=== PATIENT | male | born 1950 | race Caucasian/White ===

== ENCOUNTER → 2020-11-18 11:20 | Outpatient (CLI) | payer MEDICARE, OTHER, SELFPAY ==
--- NOTE | 2020-11-18 11:22 | DI.RAD.S_ITS ---
PROCEDURE: XR HAND LT MIN 3V INDICATIONS: blunt trauma,2nd digit and medial hand swelling/reduced ROM TECHNIQUE: 3 views of the hand(s) acquired. COMPARISON: None. FINDINGS: Bones: No dislocations. Carpal bones are normally aligned. No suspicious bony lesions. There is a diagonal intra-articular fracture involving the base of the 2nd proximal phalanx, mildly impacted and angulated. The angulation is best seen on the lateral view.. Soft tissues: No suspicious soft tissue calcifications. IMPRESSION: Acute intra-articular mildly comminuted mildly angulated fracture at the base of the 2nd proximal phalanx. Dictated by: Jeromy Menezes M.D. on 11/18/2020 at 11:40 Approved by: Jeromy Menezes M.D. on 11/18/2020 at 11:45
--- NOTE | 2020-11-18 14:38 | DI.RAD.S_ITS ---
PROCEDURE: XR HAND LT MIN 3V INDICATIONS: Post reduction TECHNIQUE: 3 views of the hand(s) acquired. COMPARISON: [facility], CR, XR HAND LT MIN 3V, 11/18/2020, 11:27. FINDINGS: Bones: Comminuted, intra-articular fracture of the base of 2nd proximal phalange remains slightly displaced and angulated. Carpal bones are normally aligned. No suspicious bony lesions. Soft tissues: No suspicious soft tissue calcifications. IMPRESSION: 2nd proximal phalange fracture slightly displaced and angulated following closed reduction. Dictated by: Clementina Quiles MD, PhD on 11/18/2020 at 14:53 Approved by: Clementina Quiles MD, PhD on 11/18/2020 at 14:54
== END ==
PROVIDERS: PCP Nurse Practitioner Family; Referring Provider Student in an Organized Health Care Education/Training Program; Visit Provider Student in an Organized Health Care Education/Training Program
DX: S62.611A Displaced fracture of proximal phalanx of left index finger, initial encounter for closed fracture (principal); M79.642 Pain in left hand; X58.XXXA Exposure to other specified factors, initial encounter
CPT/HCPCS: 73130

== ENCOUNTER → 2021-01-27 08:38 | Outpatient (CLI) | payer MEDICARE, OTHER, SELFPAY ==
--- NOTE | 2021-01-27 08:44 | DI.RAD.S_ITS ---
PROCEDURE: XR HIP W PEL IF DONE LT 2V INDICATIONS: LT LEG/HIP PAIN TECHNIQUE: AP pelvis with lateral view(s) of the left hip(s). COMPARISON: None. FINDINGS: Bones: No fractures or dislocations. Pelvic ring appears intact. No suspicious bony lesions. Soft tissues: The visualized bowel gas pattern is normal. No suspicious soft tissue calcifications. IMPRESSION: No trauma found. There is mild symmetric hip joint osteoarthritis. Dictated by: Jeromy Menezes M.D. on 01/27/2021 at 10:16 Approved by: Jeromy Menezes M.D. on 01/27/2021 at 10:16
== END ==
PROVIDERS: PCP Family Medicine; Referring Provider Family Medicine; Visit Provider Family Medicine
DX: M79.605 Pain in left leg (principal)
CPT/HCPCS: 73502

== ENCOUNTER → 2021-03-11 14:18 | Outpatient (CLI) | payer MEDICARE, OTHER, SELFPAY ==
[2021-03-11 14:59] LABS: COVID19 -Nasal RAPID Negative (Negative)
== END ==
PROVIDERS: PCP Family Medicine; Visit Provider Specialist
DX: Z20.822 Contact with and (suspected) exposure to COVID-19 (principal); R68.81 Early satiety; R19.7 Diarrhea, unspecified
CPT/HCPCS: 87635; 99214; C9803

== ENCOUNTER 2021-03-12 07:24 | Day surgery (SDC) | payer MEDICARE, OTHER, SELFPAY ==
--- NOTE | 2021-03-12 | PATH_ITS ---
[facility] Accession Number: [id number] . 01 Material submitted: . PART A: gastrointestinal site - GASTRIC ULCER BIOPSY PART B: gastrointestinal site - SUBMUCOSAL LESION BIOPSY; ANTRUM PART C: colon - SMALL WHITE PLAQUES IN SIGMOID COLON . 01 Clinical history: . DX COLONOSCOPY/EGD . 02 Diagnosis: A. Stomach, Ulcer, Biopsy: Body-type mucosa with no significant diagnostic abnormality. Negative for Helicobacter by immunohistochemistry. Negative for intestinal metaplasia. Negative for dysplasia and malignancy. . B. Antrum, Submucosal Lesion, Biopsy: Antral mucosa with mild chronic gastritis. Please see comment. Negative for Helicobacter by immunohistochemistry. Negative for intestinal metaplasia. Negative for dysplasia and malignancy. . C. Small White Plaques in Sigmoid Colon, Biopsies: Patchy mildly active colitis. Please see comment. Negative for granulomas, dysplasia and malignancy. [facility] 03/18/2021 1325 Local . 02 Comment: B. The endoscopic impression of a submucosal lesion is noted. Additional levels were examined. Only a small amount of submucosa is present for evaluation. There are no histologic findings in the tissue submitted to explain the presence of a submucosal lesion. Endoscopic correlation recommended. . C. The sigmoid colon shows patchy mild neutrophilic cryptitis, mostly superficial. There is no significant distortion of the crypt architecture, including no branched crypts or increased lymphocytes and plasma cells in the lamina propria. No obvious viral cytopathic effects or parasitic organisms are identified. The differential diagnosis includes infection, medication-related mucosal injury, diverticular diseaase-associated colitis and idiopathic inflammatory bowel disease. . 02 Electronically signed: . Denice Lobato MD, Pathologist NPI- [id number] . 01 Gross description: . Part A: GASTRIC ULCER BIOPSY: Received in formalin are 2 fragment(s) of zapata, soft tissue measuring 0.5 x 0.3 x 0.2 cm to 0.3 x 0.2 x 0.2 cm submitted entirely in 1 cassette(s) Part B: SUBMUCOSAL LESION BIOPSY; ANTRUM: Received in formalin are 2 fragment(s) of zapata, soft tissue measuring 0.3 x 0.2 x 0.1 cm to 0.2 x 0.2 x 0.1 cm submitted entirely in 1 cassette(s) Part C: SMALL WHITE PLAQUES IN SIGMOID COLON: Received in formalin are multiple fragment(s) of zapata, soft tissue measuring 1.7 x 0.3 x 0.2 cm in aggregate submitted entirely in 1 cassette(s) /KEN 03/13/2021 0247 Local . 02 Microscopic: . A. An immunohistochemical stain was performed to evaluate for Helicobacter organisms and is negative. The control stain showed appropriate reactivity. . B. Additional levels were examined. An immunohistochemical stain was performed to evaluate for Helicobacter organisms and is negative. The control stain showed appropriate reactivity. . . * This test was developed and its performance characteristics determined by [facility]. It has not been cleared or approved by the U.S. Food and Drug Administration. The FDA has determined that such clearance or approval is not necessary. This test is used for clinical purposes. It should not be regarded as investigational or for research. . 02 Pathologist provided ICD-10: R68.81, R19.4 . 02 CPT . 696590, 976364, 411928, M26326 Performed at: 01 [facility] [address] [facility], [place], [place] [id number] MD Dmitry Dunn MD Phone: [phone] Performed at: 02 [facility] [address] [place] [id number] MD Denice Lobato MD Phone: [phone]
[2021-03-12 08:00] VITALS: BP 129/76; PULSE 68; RESP 15; TEMP 36.3; O2SAT 99; BMI 31.1
[2021-03-12] MEDS: LACTATED RINGERS 1,000 ML 200 ML IV (08:09)
--- NOTE | 2021-03-12 08:48 | PM.PREOP ---
Pre-operative Note COVID-19 COVID-19 status: Negative Result date/Date tested (Pos, Neg/Pending): 03/11/21 Interval Note History & Physical reviewed/Exam performed by Physician: Yes Changes to H&P: No ASA Class (for procedural sedation): I
[2021-03-12] MEDS: MIDAZOLAM 5 MG/5 ML VIAL IV (09:11)
[2021-03-12] MEDS: fentaNYL 250 MCG/5 ML INJ IV (09:11)
[2021-03-12] MEDS: LIDOCAINE 4% SOLN 50 ML 20 ML TOP (09:12)
[2021-03-12 09:58] VITALS: BP 154/76; PULSE 61; RESP 10; TEMP 37.1; O2SAT 95
[2021-03-12 10:03] VITALS: BP 145/77; PULSE 63; RESP 12; O2SAT 94
--- NOTE | 2021-03-12 10:05 | P.OP.ENDO_ITS ---
Operative Date/Time/Diagnoses Date of procedure: 03/12/21 Time of procedure: 10:05 Pre-op diagnosis: Early satiety. Chronic loose stools/diarrhea. Post-op diagnosis: same ( Gastric ulcers.) Procedure & Clinicians Study performed: EGD with cold biopsy. Colonoscopy with cold biopsy. Same procedure as scheduled: Yes Indications: Determine cause of patient's symptoms. Surgeon: Rd Leung Procedure Notes SCOAP/Timeout: performed Procedure in detail: patient was placed in left lateral decubitus position after gargling with lidocaine gel. He was sedated using fentanyl and Versed which was ordered by the surgeon. Bite block was inserted the scope was advanced through it into the esophagus. Esophagus was somewhat tortuous but otherwise normal. GE junction noted at 41 cm from the incisors. The stomach i nsufflated well. There were multiple small ulcers with the race center and a small clot on them. I counted 3. These were located in both the antrum and the proximal body. The pyloric channel was patent. The duodenum was normal to the 4th part. The scope was brought back into the stomach and retroflexed. There was no evidence of a hiatal hernia. Biopsies were taken of the ulcers and submitted. Scope was removed and the patient tolerated the procedure well. He was repositioned. The patient underwent additional IV sedation directed by the surgeon consisting of fentanyl and Versed. Digital exam was remarkable for what is probably enlarged prostate. I can only feel the distal portion of it.. The scope was inserted and advanced through the rectum into the sigmoid, descending, transverse, and ascending colon. The patient had It is very small white flat plaques in his sigmoid colon. The edges of them were slightly reddened. They were scattered and not large in number, But frequent enough to be noticed as unusual. In order to reach the cecum a stiffener was inserted pressure was applied the patient was reposition.. The cecum was reached identified by the ileocecal valve and the appendiceal opening. I was unable to cannulate the ileocecal valve. The valve itself looked normal however. The scope was gradually brought out. No Polyps were found. I took biopsies of the white plaques I saw going in. These appeared to be confined to the sigmoid colon. Both the rectum and more proximal colon were spared.The scope ultimately was retroflexed in the rectum. The appearance was Unremarkable. The scope was removed and the patient tolerated the procedure well. prep was very good. Liquid stool in the colon was submitted for culture, ova and parasites, and GI panel. Scope withdrawal time: 9 minutes( 11 total) Sedation minutes: 47 Findings: gastric ulcer Specimen(s): other ( ulcer biopsies. White plaque biopsies in the colon.) Complications: none Post-procedure Recommendations: Start medication(s) ( Proton pump inhibitor) Follow up: months ( 1) Disposition: PACU
[2021-03-12 10:08] VITALS: BP 149/72; PULSE 62; PULSE 63; RESP 12; RESP 16; O2SAT 94; O2SAT 95
[2021-03-12 10:22] VITALS: BP 136/68; PULSE 57; RESP 16; TEMP 36.7; O2SAT 92
[2021-03-12 10:52] VITALS: BP 128/74; PULSE 60; RESP 16; TEMP 36.6; O2SAT 95
--- NOTE | 2021-03-12 11:15 | SUR.PHASEII ---
1110 Instructions reviewed with in the waiting room and with patient prior to discharge. All questions answered
[2021-03-12 12:51] LABS: Adenovirus F 40/41 Not Detected (Not Detect); Astrovirus Not Detected (Not Detect); Campylobacter Not Detected (Not Detect); Clostridium difficile toxin AB Not Detected (Not Detect); Cryptosporidium Not Detected (Not Detect); Cyclospora cayetanensis Not Detected (Not Detect); Entamoeba histolytica Not Detected (Not Detect); Enteroaggregative E.coli Not Detected (Not Detect); Enteropathogenic E.coli Not Detected (Not Detect); Enterotoxigenic E.coli It/st Not Detected (Not Detect); Giardia lamblia Not Detected (Not Detect); Norovirus GI/GII Not Detected (Not Detect); Plesiomonsa shigelloides Not Detected (Not Detect); Rotavirus A Not Detected (Not Detect); Salmonella Not Detected (Not Detect); Sapovirus Not Detected (Not Detect); Shiga-like toxin-prod E.coli Not Detected (Not Detect); Shigella/Enteroinvasive E.coli Not Detected (Not Detect); Vibrio Not Detected (Not Detect); Vibrio cholerae Not Detected (Not Detect); Yersinia enterocolitica Not Detected (Not Detect)
== END 2021-03-12 11:05 | disposition home or self-care (01) ==
PROVIDERS: PCP Family Medicine; Referring Provider Specialist; Visit Provider Specialist
PROC: 0DJ08ZZ Inspection of Upper Intestinal Tract, Via Natural or Artificial Opening Endoscopic (ICD-10-PCS; CPT 43235; 2021-03-12 08:30)
PROC: 0DJD8ZZ Inspection of Lower Intestinal Tract, Via Natural or Artificial Opening Endoscopic (ICD-10-PCS; CPT 45378; 2021-03-12 08:30)
DX: K52.9 Noninfective gastroenteritis and colitis, unspecified (principal); R19.4 Change in bowel habit; R68.81 Early satiety; K25.9 Gastric ulcer, unspecified as acute or chronic, without hemorrhage or perforation; G47.33 Obstructive sleep apnea (adult) (pediatric); K29.50 Unspecified chronic gastritis without bleeding
CPT/HCPCS: 45380; 43239; 87177; 87507; 99152; 99153; J2250; J3010

== ENCOUNTER → 2021-07-29 09:35 | Outpatient (CLI) | payer MEDICARE, OTHER, SELFPAY ==
[2021-07-29 10:37] LABS: COVID19 -Nasal RAPID Negative (Negative)
== END ==
PROVIDERS: PCP Family Medicine; Visit Provider Specialist
DX: Z01.812 Encounter for preprocedural laboratory examination (principal); Z20.822 Contact with and (suspected) exposure to COVID-19
CPT/HCPCS: 87635; C9803

== ENCOUNTER 2021-07-30 06:39 | Day surgery (SDC) | payer MEDICARE, OTHER, SELFPAY ==
[2021-07-30] VITALS (9 sets, daily range): BP systolic 109–140; BP diastolic 50–75; PULSE 61–78; RESP 14–16; TEMP 36.4–36.8; O2SAT 93–97
--- NOTE | 2021-07-30 | PATH_ITS ---
[facility] Accession Number: [id number] . 01 Material submitted: . stomach - SUBMUCOSAL MASS IN ANTRUM . 02 Diagnosis: Stomach, Antrum, Submucosal Mass, Biopsies: Antral mucosa with mild chronic gastritis and focal neutrophilic activity. Please see comment. Negative for Helicobacter by immunohistochemistry. Negative for intestinal metaplasia. Negative for dysplasia and malignancy. . [facility] 08/03/2021 1832 Local . 02 Comment: The endoscopic impression of a submucosal mass is noted, however, there is no microscopic findings to explain the presence of a submucosal mass in the sections examined. Radiologic and endoscopic correlation are recommended, as well as close clinical follow-up, if clinically indicated. . 02 Electronically signed: . Denice Lobato MD, Pathologist NPI- [id number] . 01 Gross description: . SUBMUCOSAL MASS IN ANTRUM: Received in formalin are 5 fragment(s) of zapata, soft tissue measuring 0.4 x 0.3 x 0.3 cm to 0.2 x 0.2 x 0.2 cm submitted entirely in 1 cassette(s) /QBJ 07/31/2021 0745 Local . 02 Microscopic: . An immunohistochemical stain was performed to evaluate for Helicobacter organisms and is negative. The control stain showed appropriate reactivity. . * This test was developed and its performance characteristics determined by [facility]. It has not been cleared or approved by the U.S. Food and Drug Administration. The FDA has determined that such clearance or approval is not necessary. This test is used for clinical purposes. It should not be regarded as investigational or for research. . 02 Pathologist provided ICD-10: K25.3 . 02 CPT . 247769, [id number] Performed at: 01 [facility] [address] [id number] MD Dmitry Dunn MD Phone: [phone] Performed at: 02 [facility] [address] [place] [id number] MD Denice Lobato MD Phone: [phone]
[2021-07-30] MEDS: LACTATED RINGERS 1,000 ML 42 ML IV (07:08)
--- NOTE | 2021-07-30 08:00 | PM.HP.1 ---
History of Present Illness History of Present Illness Chief complaint: EGD Narrative: The patient is a gentleman with peptic ulcer disease. He is here to confirm healing of ulcers. 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) Tobacco & Substance use: Smoking Status Former smoker alcohol intake current alcohol intake frequency holiday/special occasion Substance Use Type does not use Meds Home Medications and Allergies Home Medications Medication Instructions Recorded Confirmed Type pramipexole 0.75 mg tablet 0.75 mg PO BEDTIME #90 tab 11/17/20 05/11/21 Rx omeprazole 20 mg capsule,delayed 20 mg PO BID #60 cap 03/12/21 07/30/21 Rx release [facility] AirCurve 10 BIPAP #1 ea 05/11/21 History Allergies Allergy/AdvReac Type Severity Reaction Status Date / Time Penicillins Allergy Verified 07/30/21 06:47 Review of Systems Review of Systems Narrative: No cardiopulmonary GI or symptoms. Exam Vital Signs (past 8 hours): - 07/30/21 06:51 Temperature 97.6 F Pulse Rate 73 Respiratory Rate 16 Blood Pressure 140/75 Pulse Oximetry 97 Oxygen Delivery Method Room Air Narrative Exam Narrative: Pleasant cooperative patient no apparent distress. Lungs are clear to auscultation. No rales or rhonchi. Heart regular rate and rhythm no murmur gallop. Abdomen is soft nontender without mass. No obvious hernias. Patient is alert and oriented x3. Assessment & Plan Assessment and plan (1) Gastric ulcer: Qualifiers: Gastric ulcer chronicity: acute Gastric ulcer complication status: without hemorrhage or perforation Qualified Code(s): K25.3 - Acute gastric ulcer without hemorrhage or perforation Status: Acute Assessment & Plan narrative: EGD. I discussed the procedure including risks of bleeding perforation. He appears to understand wishes to proceed Time Spent With Patient Critical Care time: I spent a total of [] minutes of critical care time on this patient's care today; this time is exclusive of procedural time.
--- NOTE | 2021-07-30 08:02 | PM.PREOP ---
Pre-operative Note COVID-19 COVID-19 status: Negative Result date/Date tested (Pos, Neg/Pending): 07/29/21 Interval Note History & Physical reviewed/Exam performed by Physician: Yes Changes to H&P: No ASA Class (for procedural sedation): I
[2021-07-30] MEDS: LIDOCAINE 4% SOLN 50 ML 20 ML TOP (08:26)
--- NOTE | 2021-07-30 08:27 | PM.OP.EGD ---
Operative Date/Time/Diagnoses Date of procedure: 07/30/21 Time of procedure: 08:27 Pre-op diagnosis: History of gastric ulcer Post-op diagnosis: same (Ulcer is healed. Small 1-1/2 to 2 cm submucosal mass in the antrum.) Procedure & Clinicians Study performed: EGD with cold biopsy Same procedure as scheduled: Yes Indications: Determine if ulcer is healed in an asymptomatic patient Surgeon: Rd Leung Procedure Notes SCOAP/Timeout: Performed Procedure in detail: The patient had topical anesthetic applied to oropharynx. She was placed in the left lateral decubitus position and underwent IV sedation directed by the surgeon consisting of fentanyl and Versed. A bite block was inserted and the scope was advanced through it into the esophagus. The esophagus was unremarkable. GE junction was noted at 42 cm from the incisors The stomach insufflated well. There were no lesions seen in the body or at the incisura. In the proximal antrum there was a small submucosal mass noted. The pyloric channel was narrowed but patent. The duodenum was unremarkable to the 4th part. Scope was brought back into the stomach and retroflexed. The proximal stomach normal in appearance. There is no evidence of a hiatal hernia. The scope was straightened and biopsies were taken in attempt to get deep biopsies of this submucosal mass. The scope was then Brought out through the esophagus again. No lesions were seen. The scope was removed and the patient tolerated the procedure well. Sedation minutes: 11 Findings: other findings (Submucosal mass) Specimen(s): other (Biopsies of submucosal mass) Post-procedure Plan for aftercare: Can stop omeprazole. I will let you know the biopsy results. Follow up: as needed Disposition: PACU
[2021-07-30] MEDS: fentaNYL 250 MCG/5 ML INJ IV (08:28)
[2021-07-30] MEDS: MIDAZOLAM 5 MG/5 ML VIAL IV (08:28)
== END 2021-07-30 09:31 | disposition home or self-care (01) ==
PROVIDERS: PCP Family Medicine; Referring Provider Specialist; Visit Provider Specialist
PROC: 0DJ08ZZ Inspection of Upper Intestinal Tract, Via Natural or Artificial Opening Endoscopic (ICD-10-PCS; CPT 43235; principal; 2021-07-30 07:45)
DX: Z09 Encounter for follow-up examination after completed treatment for conditions other than malignant neoplasm (principal); Z87.11 Personal history of peptic ulcer disease; E66.9 Obesity, unspecified; G47.33 Obstructive sleep apnea (adult) (pediatric); K29.50 Unspecified chronic gastritis without bleeding
CPT/HCPCS: 43239; 99152; J2250; J3010

== ENCOUNTER → 2021-09-07 13:29 | Outpatient (CLI) | payer MEDICARE, OTHER, SELFPAY ==
--- NOTE | 2021-09-07 | DI.US.S_ITS ---
PROCEDURE: US ABD AORTA ANEURYSM SCREEN INDICATIONS: SCREENING TECHNIQUE: Real time scanning was performed of the aorta and iliac arteries, with image documentation. COMPARISON: [facility], [place], ABDOMEN COMPLETE, 09/06/2014, 8:53. FINDINGS: Aorta: Proximal aortic diameter measures 2.5 cm. Mid-aorta measures 2.2 cm. Distal aortic diameter is 1.9 cm. Iliac arteries: Right common iliac artery measures 1 cm. Left common iliac artery measures 1.4 cm. IMPRESSION: Negative for aneurysm. Dictated by: West Albright M.D. on 09/07/2021 at 13:50 Approved by: West Albright M.D. on 09/07/2021 at 13:51
== END ==
PROVIDERS: PCP Family Medicine; Referring Provider Family Medicine; Visit Provider Family Medicine
DX: Z13.6 Encounter for screening for cardiovascular disorders (principal)
CPT/HCPCS: 76706

== ENCOUNTER 2021-10-19 12:57 | Emergency (ER) | payer MEDICARE, OTHER, SELFPAY ==
[2021-10-19 12:59] VITALS: BP 166/70; PULSE 74; RESP 15; TEMP 36.4; O2SAT 97; BMI 32.5
--- NOTE | 2021-10-19 13:03 | DI.RAD.S_ITS ---
PROCEDURE: XR FINGER RT MIN 2V INDICATIONS: cut finger with table saw TECHNIQUE: AP hand, 2 views of the right 2nd finger(s) acquired. COMPARISON: None. FINDINGS: Bones: No fractures or dislocations. No suspicious bony lesions. Soft tissues: No suspicious soft tissue calcifications. IMPRESSION: No fracture or foreign body identified. Dictated by: Papi Anton M.D. on 10/19/2021 at 14:04 Approved by: Papi Anton M.D. on 10/19/2021 at 14:05
[2021-10-19] MEDS: BACITRACIN OINT 0.9 GM PCKT 1 APPLIC TOP (15:33)
[2021-10-19] MEDS: LIDO 1%/SOD BICARB 8.4% (10ML) 10 ML SYRINGE INJ (15:33)
[2021-10-19 16:34] VITALS: BP 142/78; PULSE 65; RESP 18; O2SAT 100
--- NOTE | 2021-10-19 17:19 | ED_ITS ---
HPI - Wound/Laceration <Glenn Ordaz PA-C - Last Filed: 10/19/21 17:51> General Chief Complaint: Wound/Laceration Stated Complaint: Lac to right index finger, knicked with table saw Time Seen by Provider: 10/19/21 14:47 Source: patient Mode of arrival: Ambulatory History of Present Illness HPI narrative: 71-year-old male with past medical history obstructive sleep apnea presents to the ED status post a finger laceration sustained just prior to arrival. Patient is right-hand dominant. Patient's tetanus status is up-to-date. Patient accidentally injured the tip of his right index finger while using a table so. Patient denies numbness, tingling, weakness. Related Data Home Medications Medication Instructions Recorded Confirmed ResMed AirCurve 10 BIPAP #1 ea 05/11/21 08/14/21 Previous Rx's Medication Instructions Recorded pramipexole 0.75 mg tablet 0.75 mg PO BEDTIME #90 tab 11/17/20 Allergies Allergy/AdvReac Type Severity Reaction Status Date / Time Penicillins Allergy Verified 10/19/21 12:59 Review of Systems <Glenn Ordaz PA-C - Last Filed: 10/19/21 17:51> Review of Systems ROS Unobtainable: All systems reviewed & are unremarkable except as noted in HPI and below Constitutional Constitutional: Denies chills, Denies fatigue, Denies fever(s), Denies frequent falls, Denies lethargy and Denies weakness Eyes Eyes: Denies change in vision, Denies eye discharge, Denies irritation and Denies loss of vision ENT Ears, Nose, Mouth, and Throat: Denies change in voice, Denies dizziness, Denies neck pain, Denies sore throat and Denies throat swelling Cardiovascular Cardiovascular: Denies chest pain, Denies irregular heart rhythm, Denies lightheadedness, Denies palpitations, Denies dyspnea, Denies dyspnea on exertion and Denies orthopnea Respiratory Respiratory: Denies cough, Denies dyspnea, Denies dyspnea on exertion and Denies wheezing Gastrointestinal Gastrointestinal: Denies abdominal pain, Denies change in bowel habits, Denies diarrhea, Denies nausea and Denies vomiting Genitourinary Genitourinary: Denies hematuria, Denies flank pain, Denies urinary incontinence and Denies urinary urgency Musculoskeletal Musculoskeletal: Denies back pain, Denies muscle weakness, Denies neck pain, Denies numbness and Denies tingling Integumentary/Breasts Skin/Breast: Denies pruritus, Denies erythema, Denies rash and Denies wounds Comments: Laceration to tip of the right index finger Neurologic Neurologic: Denies behavioral changes, Denies confusion, Denies dizziness, Denies frequent falls, Denies loss of vision, Denies numbness, Denies tingling and Denies weakness Psychiatric Psychiatric: Denies anxiety, Denies behavioral changes, Denies confusion, Denies depression, Denies homicidal ideation and Denies suicidal ideation Endocrine Endocrine: Denies fatigue, Denies flushing and Denies palpitations Hematologic/Lymphatic Hematologic/Lymphatic: Denies easy bruising Allergic/Immunologic Allergic/Immunologic: Denies urticaria, Denies throat swelling and Denies wheezing Patient History <Glenn Ordaz PA-C - Last Filed: 10/19/21 17:51> Medical History Insomnia, persistent Obesity (BMI 30-39.9) Obstructive sleep apnea of adult Restless leg syndrome Surgical History History of cervical spinal arthrodesis Social History marital status: details: zoya Cantu, lives in [place] number of children: 2 household members: spouse lives independently: Yes caregiver/support person: No housing: house education level: college occupational status: previously employed other: woodworking (construction and creative) Smoking Status: Former smoker alcohol intake: current substance use type: does not use Smoking Status: Former smoker alcohol intake frequency: holidays/special occasions only Substance Use Type: does not use Exam <Glenn Ordaz PA-C - Last Filed: 10/19/21 17:51> Initial Vital Signs Initial Vital Signs: Vital Signs Temperature 97.5 F L 10/19/21 12:59 Pulse Rate 74 10/19/21 12:59 Respiratory Rate 15 10/19/21 12:59 Blood Pressure 166/70 H 10/19/21 12:59 Pulse Oximetry 97 10/19/21 12:59 Const General: cooperative, healthy appearing and comfortable HENIA Head: normal to inspection Eyes General: appearance normal, both eyes and all related structures Resp Effort & Inspection: normal respiratory effort Auscultation: clear to auscultation bilaterally Cardio Rate: regular rate Rhythm: regular rhythm Skin Trauma: laceration Other: Laceration, avulsion injury to tip of right index finger. Laceration is bleeding but bleeding controllable with pressure. Full range of motion. Strength and sensation intact. Neurovascularly intact. Neuro General: patient alert, patient awake and patient oriented x3 Psych Appearance: grossly normal Mental Status: mental status grossly normal <Brian Dixon DO - Last Filed: 10/19/21 18:13> Initial Vital Signs Initial Vital Signs: Vital Signs Temperature 97.5 F L 10/19/21 12:59 Pulse Rate 74 10/19/21 12:59 Respiratory Rate 15 10/19/21 12:59 Blood Pressure 166/70 H 10/19/21 12:59 Pulse Oximetry 97 10/19/21 12:59 Procedures <THIERNO Santizo Last Filed: 10/19/21 17:51> Laceration Repair Laceration 1: Site: hand Side (If applicable): right Size (cm): 1 Description: stellate Local Anesthetic: lidocaine 1% and with bicarb Pre-repair: wound explored, irrigated extensively and deep structures intact Skin layer closed with: nylon Size (cm): 5-0 Number of sutures: 4 Technique: simple, interrupted Course <Glenn Ordaz PA-C - Last Filed: 10/19/21 17:51> Orders Ordered: ED Orders 10/19/21 13:03 XR finger RT min 2V Stat Discontinued Medications Bacitracin (Bacitracin Oint 0.9 Gm Pckt) 1 applic TOP NOW ONE Stop: 10/19/21 14:48 Last Admin: 10/19/21 15:33 Dose: 1 applic Documented by: DIANA Lidocaine/Sodium Bicarbonate (Lido 1%/Sod Bicarb 8.4% (10ml) 10 Ml Syringe) 10 ml INJ NOW ONE Stop: 10/19/21 14:48 Last Admin: 10/19/21 15:33 Dose: 10 ml Documented by: DIANA Vital Signs Vital signs: Vital Signs - 8 hr 10/19/21 12:59 10/19/21 16:34 Temperature 97.5 F L Pulse Rate 74 65 Respiratory Rate 15 18 Blood Pressure 166/70 H 142/78 H Pulse Oximetry 97 100 <Brian Dixon DO - Last Filed: 10/19/21 18:13> Orders Ordered: ED Orders 10/19/21 13:03 XR finger RT min 2V Stat Discontinued Medications Bacitracin (Bacitracin Oint 0.9 Gm Pckt) 1 applic TOP NOW ONE Stop: 10/19/21 14:48 Last Admin: 10/19/21 15:33 Dose: 1 applic Documented by: DIANA Lidocaine/Sodium Bicarbonate (Lido 1%/Sod Bicarb 8.4% (10ml) 10 Ml Syringe) 10 ml INJ NOW ONE Stop: 10/19/21 14:48 Last Admin: 10/19/21 15:33 Dose: 10 ml Documented by: DIANA Vital Signs Vital signs: Vital Signs - 8 hr 10/19/21 12:59 10/19/21 16:34 Temperature 97.5 F L Pulse Rate 74 65 Respiratory Rate 15 18 Blood Pressure 166/70 H 142/78 H Pulse Oximetry 97 100 MDM - Wound/Laceration <Glenn Ordaz PA-C - Last Filed: 10/19/21 17:51> Imaging Data Extremity x-ray #1: Radiologist's Impression: PROCEDURE:? XR FINGER RT MIN 2V ? INDICATIONS:? cut finger with table saw ? TECHNIQUE:? AP hand, 2 views of the right 2nd finger(s) acquired.? ? COMPARISON:? None. ? FINDINGS:? ? Bones:? No fractures or dislocations.? No suspicious bony lesions.? ? Soft tissues:? No suspicious soft tissue calcifications.? ? IMPRESSION:? No fracture or foreign body identified. ? ? Dictated by: Papi Anton M.D. on 10/19/2021 at 14:04 ? ? Approved by: Papi Anton M.D. on 10/19/2021 at 14:05 ? MDM Narrative Medical decision making narrative: -year-old male with past medical history obstructive sleep apnea presents to the ED status post a finger laceration sustained just prior to arrival. Concern for fracture/dislocation versus foreign body versus laceration. Obtained x-rays. No fracture/dislocation/foreign body on x-ray. Repair laceration with sutures. Infection prevention and wound care discussed with patient. Counseled patient on signs of infection. ED return precautions discussed. Patient verbalized understanding. Discharge Plan Departure Patient Disposition: Home Clinical Impression: Laceration Instructions: DI for Laceration Repair Activity Restrictions/Additional Instructions: You were evaluated in the ED today for a finger laceration. Your x-ray did not show any fractures or dislocations or foreign objects. Your laceration was repaired with sutures. Your sutures will need to be removed in 7-10 days. You may return to the ED or go to a walk-in clinic or your PCP for suture removal. Return to the ED if you see any signs of infection such as increasing redness, swelling, pain, discharge, warmth. Prescriptions: No Action (DME) ResMed AirCurve 10 BIPAP See Rx Instructions Qty: 1 0RF Dose Instruction: As directed Rx Instructions: Pressure: IPAP 12 EPAP 4 DME: SOUND O[employer]GEN pramipexole 0.75 mg tablet 0.75 mg PO BEDTIME Qty: 90 3RF Rx Instructions: Take 1 tab 2-3 hours before bedtime Referrals: Mathew Tovar MD [Primary Care Provider] - <Brian Dixon DO - Last Filed: 10/19/21 18:13> Cosign ED Attending Cosignature Attestation: Dr Dixon Co-Sign Statement: I was available for consultation during this patient's emergency department visit. This chart is signed by myself for administrative purposes only. I did not have direct contact with this patient during this visit. They were seen independently by the APC.
== END 2021-10-19 17:25 | disposition home or self-care (01) ==
PROVIDERS: Emergency Provider Student in an Organized Health Care Education/Training Program; PCP Family Medicine
DX: S61.210A Laceration without foreign body of right index finger without damage to nail, initial encounter (principal); W27.0XXA Contact with workbench tool, initial encounter
CPT/HCPCS: 12001; 73140; 99283

== ENCOUNTER → 2023-05-22 08:07 | Outpatient (CLI) | payer MEDICARE, OTHER, SELFPAY ==
--- NOTE | 2023-05-22 | DI.RAD.S_ITS ---
PROCEDURE: XR HIP W PEL IF DONE LT 2V INDICATIONS: HIP PAIN TECHNIQUE: 2 views of the hip were acquired. COMPARISON: [facility], , XR HIP W PEL IF DONE LT 2V, 01/27/2021, 8:42. FINDINGS: Bones: Mild bilateral hip arthrosis, relatively similar compared to 2020 radiographs. No displaced fracture or dislocation. Lumbosacral degenerative changes also seen. Possible bone island at the right acetabular roof. Soft tissues: No suspicious calcifications. Vascular calcifications are present. IMPRESSION: Mild bilateral hip degenerative changes. If there is high concern for further derangement, consider MRI evaluation. Dictated by: Anurag Donaldson M.D. on 05/22/2023 at 11:43 Approved by: Anurag Donaldson M.D. on 05/22/2023 at 11:44
--- NOTE | 2023-05-22 | DI.RAD.S_ITS ---
PROCEDURE: XR LUMBAR SPINE MIN 4V INDICATIONS: BACK PAIN TECHNIQUE: Five views of the lumbar spine COMPARISON: [facility], MR, L-SPINE WITHOUT CONTRAST, 07/27/2016, 7:38. [facility], CR, L-SPINE MINIMUM 4 VIEWS, 01/24/2014, 13:01. [facility], CR, L-SPINE 2-3 VIEWS, 05/24/2011, 11:24. FINDINGS: Bones: There are 5 lumbar type vertebral bodies. Vertebral body heights are well maintained. No dynamic instability on flexion extension views. Range of motion is limited. Overall wpsq-ii-gejmllmm degenerative changes. Soft tissues: There are vascular calcifications. Cholecystectomy clips. IMPRESSION: Tvlb-ds-eogmsnsd degenerative changes. No acute radiographic abnormality. Limited range of motion. No dynamic instability. If there is high concern for further derangement, consider MRI evaluation. Dictated by: Anurag Donaldson M.D. on 05/22/2023 at 11:37 Approved by: Anurag Donaldson M.D. on 05/22/2023 at 11:39
--- NOTE | 2023-05-22 | DI.RAD.S_ITS ---
PROCEDURE: XR CERVICAL SPINE 4V OR 5V INDICATIONS: NECK PAIN TECHNIQUE: 5 views of the cervical spine were acquired. COMPARISON: None. FINDINGS: Bones: C3-C6 fusion hardware. Vertebral body heights are well maintained. Nuchal ligament calcifications. No significant movement on flexion extension views. Limited range of motion. C1 on C2 alignment within normal limits on odontoid view. Prominent anterior osteophyte at C2-C3 Soft tissues: No pathologic prevertebral soft tissue swelling. IMPRESSION: Postsurgical fusion appearance of cervical fusion hardware with limited range of motion. Consider cross-sectional imaging if there is further concern. Dictated by: Anurag Donaldson M.D. on 05/22/2023 at 11:35 Approved by: Anurag Donaldson M.D. on 05/22/2023 at 11:37
== END ==
PROVIDERS: PCP Family Medicine; Referring Provider Neurological Surgery; Visit Provider Neurological Surgery
DX: M47.26 Other spondylosis with radiculopathy, lumbar region (principal); M54.2 Cervicalgia; M25.552 Pain in left hip; Z98.1 Arthrodesis status
CPT/HCPCS: 72050; 72110; 73502

== ENCOUNTER → 2023-07-28 11:34 | Outpatient (CLI) | payer MEDICARE, OTHER, SELFPAY ==
--- NOTE | 2023-07-28 | DI.MRI.S_ITS ---
PROCEDURE: MR LUMBAR SPINE WO CON INDICATIONS: Radiculopathy, lumbar region TECHNIQUE: Noncontrast sagittal T1 spin echo and T2 fast echo, sagittal STIR, and T2 fast spin echo through the lumbar spine. In cases with scoliosis, additional coronal T2 fast spin echo may be performed. COMPARISON: [facility], , L-SPINE WITHOUT CONTRAST, 07/27/2016, 7:38. FINDINGS: Image quality: Excellent. Alignment and Curvature: There is normal bony alignment. Bone Marrow: Marrow is of normal overall signal. No acute vertebral body compression fractures. Spinal Cord: Conus medullaris terminates at the L1 level. Visualized cord demonstrates normal signal and size. Paraspinous Soft Tissues: No paravertebral masses. T12-L1: Normal appearance. L1-L2: Mild facet hypertrophy. No canal stenosis or foraminal stenosis. L2-L3: Progressive findings. Development of disc height loss. Development of disc bulge. Facet and ligament hypertrophy. Progressive, moderate canal stenosis. No significant foraminal stenosis. L3-L4: Facet hypertrophy. No significant canal stenosis or foraminal stenosis. L4-L5: Progressive findings. Development of disc height loss. Development of broad-based left paracentral disc protrusion. There is impingement on the bilateral L5 nerve roots in the bilateral lateral recesses. There is moderate canal stenosis. There is bilateral facet hypertrophy. There is noya-lv-dxpbubla right foraminal narrowing. There is moderate left foraminal narrowing with mild flattening deformity on the exiting left L4 nerve root. L5-S1: Disc bulge. Facet hypertrophy. No canal stenosis. Vmmy-fe-crwhsxib right foraminal narrowing. IMPRESSION: 1. There is underlying multilevel facet arthropathy. 2. Progressive findings at L2-L3 and L4-L5. 3. At L2-L3, there is now moderate canal stenosis. 4. At L4-L5, there is broad-based left paracentral disc protrusion. The bilateral L5 nerve roots are impinged in the bilateral lateral recesses. There is moderate canal stenosis, and there is moderate left foraminal stenosis. Dictated by: mEir Sultana M.D. on 07/28/2023 at 15:30 Approved by: Emir Sultana M.D. on 07/28/2023 at 15:39
== END ==
PROVIDERS: PCP Family Medicine; Referring Provider Neurological Surgery; Visit Provider Neurological Surgery
DX: M47.26 Other spondylosis with radiculopathy, lumbar region (principal); M47.27 Other spondylosis with radiculopathy, lumbosacral region; M51.16 Intervertebral disc disorders with radiculopathy, lumbar region; M48.061 Spinal stenosis, lumbar region without neurogenic claudication
CPT/HCPCS: 72148

== ENCOUNTER → 2024-01-13 08:20 | Outpatient (CLI) | payer MEDICARE, OTHER, SELFPAY ==
[2024-01-13 09:56] LABS: Influenza A - CEPHEID Flu A NEGATIVE (NEGATIVE); Influenza B - CEPHEID Flu B NEGATIVE (NEGATIVE); Respiratory Syncytial Virus Negative (Negative)
[2024-01-13 09:57] LABS: COVID-19 CEPHEID 4-PLEX PCR Negative (Negative)
== END ==
PROVIDERS: PCP Family Medicine; Visit Provider Nurse Practitioner Family
DX: R05.1 Acute cough (principal)
CPT/HCPCS: 0241U

== ENCOUNTER → 2024-01-13 09:02 | Outpatient (CLI) | payer MEDICARE, OTHER, SELFPAY ==
--- NOTE | 2024-01-13 09:04 | DI.RAD.S_ITS ---
PROCEDURE: XR CHEST 2V INDICATIONS: Cough TECHNIQUE: 2 views of the chest were acquired. COMPARISON: [facility], , CHEST 1 VIEW, 09/06/2014, 8:03. FINDINGS: Surgical changes and devices: None. Lungs and pleura: Lungs are clear. No pleural effusions or pneumothorax. Questionable nodule seen on the lateral view measuring 1.6 centimeters. Mediastinum: Mediastinal contours are normal. Heart size is normal. Bones and chest wall: No suspicious bony abnormalities. Soft tissues appear unremarkable. IMPRESSION: No acute cardiopulmonary abnormality is seen. Questionable pulmonary nodule measuring 1.6 centimeters, this could be further delineated by CT if clinically warranted. Dictated by: Jonathon Anton M.D. on 01/13/2024 at 8:26 Approved by: Jonathon Anton M.D. on 01/13/2024 at 8:29
== END ==
PROVIDERS: PCP Family Medicine; Referring Provider Nurse Practitioner Family; Visit Provider Nurse Practitioner Family
DX: R05.1 Acute cough (principal)
CPT/HCPCS: 0241U; 71046

== ENCOUNTER → 2024-01-18 | Outpatient (CLI) | payer MEDICARE, OTHER, SELFPAY ==
--- NOTE | 2024-01-18 07:13 | DI.CT.S_ITS ---
PROCEDURE: CT CHEST WO CON INDICATIONS: PULMONARY NODULE TECHNIQUE: Noncontrast 5 mm thick sections acquired from the pulmonary apices to the posterior costophrenic angles. 1 mm lung window, 5 mm thick coronal and sagittal and 7 mm axial MIP reformats were then acquired. For radiation dose reduction, the following was used: automated exposure control, adjustment of mA and/or kV according to patient size. COMPARISON: [facility], CR, XR CHEST 2V, 01/13/2024, 9:05. FINDINGS: Image quality: Diagnostic. Lower Neck: No enlarged lymph nodes. Thyroid: No thyroid nodules which require sonographic follow up, per consensus guidelines. Axillae: No enlarged lymph nodes. Chest Wall: Unremarkable. Bones: Unremarkable. Lungs and Pleura: No pneumothorax or pleural effusions. Calcified granuloma, extreme right lung base. The questionable pulmonary nodule seen on lateral view of the chest film represents prominent thoracic osteophyte. There is a 3 mm pulmonary nodule in the left lower lobe on image 180/3. There are scattered 3 mm or less pulmonary nodules. For instance, or reference axial image 219/3 as well as axial image 215/3. The there is a 6 mm left lower lobe pulmonary nodule on image 215/3. Heart: Heart size is normal. No pericardial effusion. Thoracic Vessels: The aorta and pulmonary arteries demonstrate normal size. Mediastinum and Lizett: No enlarged lymph nodes. Esophagus: No wall thickening. No hiatal hernia. Upper Abdomen: Visualized upper abdomen solid organs and bowel loops appear normal. IMPRESSION: 1. The 1.6 cm density seen on the prior chest film is an osteophyte and not a suspicious lesion. 2. Evidence of chronic granulomatous disease. 3. Multiple noncalcified pulmonary nodules, the largest of which measures 6 mm. Comment: Recommend six-month CT follow-up for the 6 mm nodule. Dictated by: Emir Sultana M.D. on 01/18/2024 at 9:55 Approved by: Emir Sultana M.D. on 01/18/2024 at 9:59
== END ==
PROVIDERS: PCP Family Medicine; Referring Provider Family Medicine; Visit Provider Family Medicine
DX: R91.8 Other nonspecific abnormal finding of lung field (principal); M25.78 Osteophyte, vertebrae
CPT/HCPCS: 71250

== ENCOUNTER → 2024-12-24 07:36 | Outpatient (CLI) | payer MEDICARE, OTHER, SELFPAY ==
--- NOTE | 2024-12-24 07:40 | DI.CT.S_ITS ---
PROCEDURE: CT CHEST WO CON INDICATIONS: PULMONARY NODULE/ TECHNIQUE: Noncontrast 5 mm thick sections acquired from the pulmonary apices to the posterior costophrenic angles. 1 mm lung window, 5 mm thick coronal and sagittal and 7 mm axial MIP reformats were then acquired. For radiation dose reduction, the following was used: automated exposure control, adjustment of mA and/or kV according to patient size. COMPARISON: [facility], CT, CT CHEST WO CON, 01/18/2024, 7:22. FINDINGS: Image quality: Diagnostic. Lower Neck: No enlarged lymph nodes. Thyroid: No thyroid nodules which require sonographic follow up, per consensus guidelines. Axillae: No enlarged lymph nodes. Chest Wall: Unremarkable. Bones: Unremarkable. Lungs and Pleura: No pneumothorax or pleural effusions. Previously identified subcentimeter calcified and noncalcified pulmonary nodules are unchanged. No new nodules. Heart: Heart size is normal. No pericardial effusion. Thoracic Vessels: The aorta and pulmonary arteries demonstrate normal size. Mediastinum and Lizett: No enlarged lymph nodes. Esophagus: No wall thickening. Minimal hiatal hernia. Upper Abdomen: Hepatic steatosis. IMPRESSION: Stable appearance of previously pulmonary nodules. Dictated by: Leydi Capellan M.D. on 12/24/2024 at 9:21 Approved by: Leydi Capellan M.D. on 12/24/2024 at 9:23
--- NOTE | 2024-12-24 07:41 | DI.NM.S_ITS ---
PROCEDURE: NM EXERCISE TREADMILL NON NUC COMPARISON: None INDICATIONS: Dyspnea on exertion FINDINGS: Rest ECG sinus rhythm 67 bpm. Osiel protocol 4:06, maximum heart rate 109 bpm (74% peak predicted), peak blood pressure 122/90, 5.1 METS, EVA +29%. Exercise ECG sinus rhythm, no ST segment changes or arrhythmias. The patient did not report exercise-induced chest pain however did exhibit significant dyspnea. Oxygen saturation maintained greater than 94% throughout the test. IMPRESSION: The study that cannot be interpreted for ischemia due to inability to achieve target heart rate. No ECG changes with the level of exercise obtained. Normal hemodynamic response. Message left for ordering provider. Dictated by: Tammie Irwin D.O. on 12/24/2024 at 15:53 Approved by: Tammie Irwin D.O. on 12/24/2024 at 16:00
== END ==
LOC: CT 07:37
PROVIDERS: PCP Family Medicine; Referring Provider Family Medicine; Visit Provider Family Medicine
DX: R06.09 Other forms of dyspnea (principal); R91.8 Other nonspecific abnormal finding of lung field; K76.0 Fatty (change of) liver, not elsewhere classified
CPT/HCPCS: 71250; 93017

== ENCOUNTER → 2025-02-04 07:41 | Outpatient (CLI) | payer MEDICARE, OTHER, SELFPAY ==
--- NOTE | 2025-02-05 14:20 | DI.NM.S_ITS ---
DATE OF SERVICE: 02/04/2025 PROCEDURE: Pharmacological perfusion study. INDICATIONS: Shortness of breath, hypertension. RADIOPHARMACEUTICAL: 27.2 mCi technetium-99m Myoview IV was injected at rest and 12.1 mCi technetium-99m Myoview IV was injected at rest. CARDIAC STRESS: The patient underwent IV Lexiscan perfusion study under the supervision of an attending staff using standard IV Lexiscan as per protocol. The patient remained hemodynamically stable. Baseline rhythm sinus. During stress, nonspecific ST-T changes without any convincing ischemic changes. Rare PVCs. No complex arrhythmias. No chest discomfort. He had minimal dyspnea. Resting blood pressure 140/80, which remained stable. RAW DATA: There is an increased subdiaphragmatic activity. The patient's weight is 249 pounds. Increased subdiaphragmatic activity as well. Gut shadow seen encroaching the inferior border of the heart. Resting LV ejection fraction 60%, stress LV ejection fraction 73%. Resting end-diastolic volume 146 mL. TID ratio 1.01. Lung/heart ratio 0.38, which is within normal limit. MYOCARDIAL PERFUSION SCAN: Stress supine, resting supine, and stress prone images were compared to each other. Stress supine and resting supine images revealed large size, moderate to severely decreased perfusion of inferior wall extending into the inferolateral wall. During stress prone images, there is a significant improvement of inferolateral as well as inferior wall defect; however, basal inferior and basal inferolateral wall defect did not improve during stress prone images. No obvious reversible ischemia. Summed stress and summed rest score 4 with difference 0. CONCLUSION: 1. No obvious reversible ischemia. 2. Significant inferior and inferolateral wall defect which was seen during stress supine and resting supine images, got significantly improved during stress prone images; however, stress prone images remained to have fixed basal inferior wall and inferolateral defect. The patient's weight is 249 pounds. There is increased subdiaphragmatic activity as well as gut shadow seen encroaching the inferior border of the heart. Inferior wall is moving well without any significant wall motion abnormalities. On surface EKG, there is no old Q-waves. Hence, most likely, we are dealing with tissue attenuation artifact and component of persistent tissue attenuation artifact; however, cannot rule out small infarction of basal inferior wall and basal inferolateral wall. Overall, preserved left ventricular function. In the absence of reversible ischemia, preserved left ventricular function and without any large infarction, overall low-risk myocardial perfusion scan. Correlate clinically. Brian Sanchez - ALENA/rommel/MS doc#: [id number]/job#: [id number] dd: 02/04/2025 16:37:00 dt: 02/04/2025 17:11:00 DICTATING MD/COPIES TO: Evans Perry MD COPIES MNE: SAIRA;
== END ==
LOC: NUCM 07:41
PROVIDERS: PCP Family Medicine; Referring Provider Family Medicine; Visit Provider Family Medicine
DX: R06.09 Other forms of dyspnea (principal)
CPT/HCPCS: 78452; 93017; A9502; J2785

== ENCOUNTER → 2025-02-12 15:12 | Outpatient (CLI) | payer MEDICARE, OTHER, SELFPAY ==
--- NOTE | 2025-02-12 15:13 | DI.CT.S_ITS ---
PROCEDURE: CT ABDOMEN PELVIS W CON INDICATIONS: ABD PAIN TECHNIQUE: After the administration of intravenous contrast, axial sections acquired from the lung bases to the pubic symphysis. Coronal and sagittal reformats were performed. For radiation dose reduction, the following was used: automated exposure control, adjustment of mA and/or kV according to patient size. COMPARISON: [facility], CT, CT CHEST WO [facility], 12/24/2024, 7:47. FINDINGS: Image quality: Diagnostic. Lower Chest: Several pulmonary nodules at the lung bases are stable compared to prior chest CT. ABDOMEN: Liver: No solid mass. Hepatic steatosis. Gallbladder: Surgically absent. Biliary ducts: No biliary dilation. Pancreas: No ductal dilation. Spleen: Size is within normal limits. Adrenal Glands: No adrenal nodules. Kidneys and Ureters: No hydronephrosis. No solid mass. No complex renal cystic lesion which requires follow up. Stomach and Bowel: Normal colonic caliber, without significant wall thickening. Moderate stool burden. Normal appendix. Peritoneum: No abnormal intraperitoneal fluid. No free air. Ventral Wall: No significant ventral hernia. Abdominal Nodes: No retroperitoneal or mesenteric adenopathy by size criteria. Vessels: Aorta and inferior vena cava are normal in size. Atherosclerotic vascular calcifications. PELVIS: Pelvic Organs: Mild prostatomegaly. Bladder: No bladder wall thickening, accounting for underdistention. Pelvic Nodes: No enlarged lymph nodes. Miscellaneous: No inguinal hernias are seen. Bones: No aggressive osseous abnormality. Degenerative changes of the spine. IMPRESSION: 1. No acute findings within the abdomen or pelvis to explain patient's symptoms. 2. Moderate stool burden, correlate for constipation. 3. Hepatic steatosis. 4. Several pulmonary nodules are stable compared to recent prior chest CT. Dictated by: Raghav Antunez M.D. on 02/12/2025 at 17:04 Approved by: Raghav Antunez M.D. on 02/12/2025 at 17:10
== END ==
PROVIDERS: Family Provider Family Medicine; PCP Family Medicine; Referring Provider Family Medicine; Visit Provider Family Medicine
DX: K76.0 Fatty (change of) liver, not elsewhere classified (principal); N40.0 Benign prostatic hyperplasia without lower urinary tract symptoms; R91.8 Other nonspecific abnormal finding of lung field; R10.31 Right lower quadrant pain; R10.10 Upper abdominal pain, unspecified; Z90.49 Acquired absence of other specified parts of digestive tract
CPT/HCPCS: 74177; Q9967